=== PATIENT | female | born 1960 | race American Indian/Alaskan Native ===

== ENCOUNTER 2016-07-30 11:10 | Outpatient (CLI) | payer BC ==
--- NOTE | 2016-07-30 11:58 | Mammography Report ---
Left mammogram: Additional compression imaging of the left breast is performed based to recent screening study questioning asymmetry. The additional compression images are compared to prior studies dating back to 2013. The findings do not appear significantly changed. Impression: Stable left breast pattern. Recommendation: Annual mammogram followup. BI-RADS CATEGORY: 1 = Negative ACR BI-RADS MAMMOGRAPHIC CODES: 0 = Needs additional imaging evaluation; 1 = Negative; 2 = Benign; 3 = Probably benign; 4 = Suspicious; 5 = Malignant; 6 = Known biopsy-proven malignancy COMMENT: 1. Dense breast tissue, i.e., adenosis, fibrocystic changes, etc., may obscure an underlying neoplasm. 2. Approximately 10% of cancers are not detected with mammography. 3. A negative mammography report should not delay biopsy if a clinically suspicious mass is present.
== END 2016-07-30 11:11 | disposition home or self-care (01) ==
LOC: SPVWC 11:10
DX: R92.8 Other abnormal and inconclusive findings on diagnostic imaging of breast (principal)
CPT/HCPCS: G0206-LT

== ENCOUNTER 2017-07-14 10:52 | Outpatient (CLI) | payer BC ==
--- NOTE | 2017-07-15 12:31 | Mammography Report ---
BILATERAL DIGITAL SCREENING MAMMOGRAM with CAD : 07/14/17 10:52:00 CLINICAL: Routine screening. COMPARISON:07/10/16 FINDINGS: The breasts are heterogeneously dense, which may obscure small masses.Bilateral benign calcifications. No mass, architectural distortion or suspicious calcifications. IMPRESSION: No mammographic evidence of malignancy. BI-RADS CATEGORY: 2 -- Benign RECOMMENDATION: Routine mammographic screening in one year. COMMENT: Patient follow-up letters are generated by our [employer] application.
== END 2017-07-14 10:53 | disposition home or self-care (01) ==
LOC: SPVWC 10:52
DX: Z12.31 Encounter for screening mammogram for malignant neoplasm of breast (principal)
CPT/HCPCS: 77067; G0202

== ENCOUNTER 2019-07-18 12:10 | Outpatient (CLI) | payer BC ==
--- NOTE | 2019-07-18 15:58 | Mammography Report ---
DIGITAL SCREENING MAMMOGRAM WITH CAD, 07/18/2019 INDICATION: Routine screening mammography. TECHNIQUE: Digital bilateral 2D mammography was obtained in the craniocaudal and mediolateral obliq ue projections. This examination was interpreted with the benefit of Computer-Aided Detection analysi s. COMPARISON: 06/22/2013 FINDINGS: Breast Density: The breasts are heterogeneously dense, which may obscure small masses. There is no evidence of dominant mass, suspicious calcifications or architectural distortion in eithe r breast. Scattered bilateral benign calcifications. IMPRESSION: No mammographic evidence of malignancy. Follow up recommendation: Routine yearly BI-RADS Category 2: Benign. A "normal" or negative report should not discourage follow up or biopsy of a clinically significant f inding. A written summary of these findings will be mailed to the patient. The patient will be entered into a mammography reporting system which will generate a reminder letter for the patient's next appointmen t at the appropriate interval. The [employer] recommends yearly mammograms starting at age 40 and continuing as l gloria as a woman is in good health. Breast MRI is recommended for women with an approximate 20-25% or greater lifetime risk of breast cancer, including women with a strong family history of breast or ova nataly cancer or who have been treated for Hodgkin's disease. Signer Name: Wilber Eng MD Signed: 07/18/2019 3:54 PM Workstation Name: [id number]
== END 2019-07-18 12:11 | disposition home or self-care (01) ==
LOC: SPVWC 12:10
PROVIDERS: ATTEND Urology
DX: Z12.31 Encounter for screening mammogram for malignant neoplasm of breast (principal)
CPT/HCPCS: 77067

== ENCOUNTER 2020-07-24 11:24 | Outpatient (CLI) | payer BC ==
--- NOTE | 2020-07-25 08:09 | Mammography Report ---
DIGITAL SCREENING MAMMOGRAM WITH CAD, 07/24/2020 CLINICAL INFORMATION / INDICATION: Routine screening mammography. SCREENING MAMMO TECHNIQUE: Digital bilateral 2D mammography was obtained in the craniocaudal and mediolateral obliqu e projections. This examination was interpreted with the benefit of Computer-Aided Detection analysis . COMPARISON: 07/18/2019 and 07/15/2018 FINDINGS: Breast Density: The breasts are heterogeneously dense, which may obscure small masses. No dominant mass, suspicious calcifications, or architectural distortion in either breast. Bilateral benign-appearing calcifications are present. IMPRESSION: No mammographic evidence of malignancy. Follow up recommendation: Routine yearly BI-RADS Category 2: Benign. A "normal" or negative report should not discourage follow up or biopsy of a clinically significant f inding. A written summary of these findings will be mailed to the patient. The patient will be entered into a mammography reporting system which will generate a reminder letter for the patient's next appointmen t at the appropriate interval. The [employer] recommends yearly mammograms starting at age 40 and continuing as l gloria as a woman is in good health. Breast MRI is recommended for women with an approximate 20-25% or greater lifetime risk of breast cancer, including women with a strong family history of breast or ova nataly cancer or who have been treated for Hodgkin's disease. Signer Name: Sai Bautista MD Signed: 07/25/2020 8:05 AM Workstation Name: [id number]
== END 2020-07-24 11:25 | disposition home or self-care (01) ==
LOC: SPVWC 11:24
PROVIDERS: ATTEND Urology
DX: Z12.31 Encounter for screening mammogram for malignant neoplasm of breast (principal); R92.1 Mammographic calcification found on diagnostic imaging of breast
CPT/HCPCS: 77067

== ENCOUNTER 2020-10-02 13:07 | Outpatient (CLI) | payer BC ==
--- NOTE | 2020-10-02 18:08 | Ultrasound Report ---
Pelvic Ultrasound HISTORY: ABNORMAL MICROBIOLOGICAL FINDINGS IN SPECIMENS FEMALE GENITALIA. TECHNIQUE: Grayscale and color imaging performed. COMPARISON: None FINDINGS: Transabdominal and endovaginal imaging was performed Uterus measures 5.3 x 4.2 x 6.3 cm with endometrial complex measuring 3 mm. There is a hyperechoic ma ss measuring 2 cm in the uterine body as well as 2 separate hypoechoic masses posteriorly the largest measuring 1.9 cm. Right ovary is normal in size and appearance. Left ovary is not visualized. No pelvic free fluid identified. IMPRESSION: Uterine masses likely representing fibroids, one of which is hyperechoic and may be hyper vascular. Signer Name: Ck Taylor MD Signed: 10/02/2020 6:04 PM Workstation Name: [id number]
== END 2020-10-02 13:08 | disposition home or self-care (01) ==
LOC: SPVWC 13:07
PROVIDERS: ATTEND Family Medicine
DX: R19.09 Other intra-abdominal and pelvic swelling, mass and lump (principal); R87.5 Abnormal microbiological findings in specimens from female genital organs
CPT/HCPCS: 76830; 76856

== ENCOUNTER 2021-08-06 13:54 | Outpatient (CLI) | payer BC ==
--- NOTE | 2021-08-07 09:47 | Mammography Report ---
DIGITAL SCREENING MAMMOGRAM WITH CAD, 08/06/2021 CLINICAL INFORMATION / INDICATION: Routine screening mammography. SCREENING TECHNIQUE: Digital bilateral 2D mammography was obtained in the craniocaudal and mediolateral obliqu e projections. This examination was interpreted with the benefit of Computer-Aided Detection analysis . COMPARISON: 07/24/2020. FINDINGS: Breast Density: The breasts are heterogeneously dense, which may obscure small masses. No dominant mass, suspicious calcifications, or architectural distortion in either breast. IMPRESSION: No mammographic evidence of malignancy. Follow up recommendation: Routine yearly BI-RADS Category 1: NEGATIVE A "normal" or negative report should not discourage follow up or biopsy of a clinically significant f inding. A written summary of these findings will be mailed to the patient. The patient will be entered into a mammography reporting system which will generate a reminder letter for the patient's next appointmen t at the appropriate interval. The [employer] recommends yearly mammograms starting at age 40 and continuing as l gloria as a woman is in good health. Breast MRI is recommended for women with an approximate 20-25% or greater lifetime risk of breast cancer, including women with a strong family history of breast or ova nataly cancer or who have been treated for Hodgkin's disease. Signer Name: Isidoro Farrell MD Signed: 08/07/2021 9:42 AM Workstation Name: [id number]
== END 2021-08-06 13:55 | disposition home or self-care (01) ==
LOC: MAMMO 13:54
PROVIDERS: ATTEND Family Medicine
DX: Z12.31 Encounter for screening mammogram for malignant neoplasm of breast (principal)
CPT/HCPCS: 77067